=== PATIENT | female | born 1960 | race Caucasian/White ===

== ENCOUNTER 2020-08-14 09:16 | Outpatient (CLI) | payer OTHER, SELFPAY ==
--- NOTE | ~2020-08-14 | MM_ITS ---
EXAMINATION: MM screening marianela BI w brandi HISTORY: Screening mammogram TECHNIQUE: Craniocaudal and mediolateral oblique 3-D tomosynthesis images were obtained and synthetic 2-D images were generated. CAD analysis was submitted and interpreted. COMPARISON: 07/13/2019, 06/07/2018, 04/07/2017 bilateral digital mammogram examinations BREAST PARENCHYMAL COMPOSITION: The breasts are almost entirely fatty. FINDINGS: Subtle grouped microcalcifications in the lower outer right breast; magnification views are recommended. There are scattered bilateral benign calcifications. Otherwise there is no evidence of suspicious mas s, calcification, or architectural distortion to suggest malignancy in either breast. There has been no suspicious interval change. IMPRESSION: 1. Subtle grouped microcalcifications in the lower outer right breast; magnification views are recomm ended 2. Diagnostic right mammogram with magnification views is recommended. BI-RADS Category 0: Incomplete: Needs additional imaging evaluation. Reviewed, dictated and finalized at location A. IMPRESSION: 1. Subtle grouped microcalcifications in the lower outer right breast; magnific ation views are recommended 2. Diagnostic right mammogram with magnification views is recommended. BI-RADS Category 0: Incomplete: Needs additional imaging evaluation.
== END 2020-08-14 09:17 | disposition home or self-care (01) ==
LOC: ANHIMG 09:19
PROVIDERS: PCP Internal Medicine; Visit Provider Internal Medicine
DX: Z12.31 Encounter for screening mammogram for malignant neoplasm of breast (principal); R92.8 Other abnormal and inconclusive findings on diagnostic imaging of breast
CPT/HCPCS: 77063; 77067

== ENCOUNTER → 2020-09-05 08:50 | Outpatient (CLI) | payer OTHER, SELFPAY ==
--- NOTE | ~2020-09-05 | MM_ITS ---
EXAMINATION: MM diagnostic mammo unilat RT HISTORY: Follow-up right breast calcifications TECHNIQUE: Additional 3-D tomosynthesis images of the right breast were performed and synthetic 2-D i mages were generated. CAD analysis was submitted and interpreted. COMPARISON: 08/14/2020 BREAST PARENCHYMAL COMPOSITION: Breast composed of scattered areas of fibroglandular density. FINDINGS: There are linear calcifications clustered in the mid outer aspect of the right breast which are likely benign. These are likely secretory calcifications. There are no suspicious masses or arch itectural distortion. IMPRESSION: 1. Probable benign right breast calcifications. 2. Recommend 6 month follow-up diagnostic right mammogram BI-RADS category 3, probably benign findings. Reviewed, dictated and finalized at location A.
== END ==
PROVIDERS: PCP Internal Medicine; Visit Provider Internal Medicine
DX: R92.8 Other abnormal and inconclusive findings on diagnostic imaging of breast (principal)
CPT/HCPCS: 77065

== ENCOUNTER → 2021-04-21 08:14 | Outpatient (CLI) | payer OTHER, SELFPAY ==
--- NOTE | ~2021-04-21 | MMUS_ITS ---
EXAMINATION: MM diagnostic marianela RT w brandi, US breast RT limited HISTORY: Six-month follow-up examination of probable benign right breast calcifications TECHNIQUE: ML, MLO and craniocaudal 3-D tomosynthesis images and magnification views of the right david ast were performed and synthetic 2-D images were generated. CAD analysis was submitted and interprete d. High resolution lower outer quadrant right breast ultrasound was performed. COMPARISON: 09/05/2020 right diagnostic mammogram BREAST PARENCHYMAL COMPOSITION: The breasts are almost entirely fatty. FINDINGS: MAMMOGRAPHIC FINDINGS: There is a focus of likely benign secretory calcifications in the lower outer quadrant of the right b reast. Lower outer quadrant breast ultrasound examination was performed to exclude any suspicious mas s. Benign secretory calcifications are evident in the lower inner quadrant of the right breast. ULTRASOUND: No suspicious mass or shadowing is detected in the lower outer quadrant of the right breast. IMPRESSION: 1. Benign findings; benign secretory calcifications 2. Annual mammographic screening follow-up is recommended. BI-RADS Category 2: Benign finding(s). Reviewed, dictated and finalized at location A. IMPRESSION: 1. Benign findings; benign secretory calcifications 2. Annual mammographic screening follow-up is recommended. BI-RADS Category 2: Benign finding(s).
== END ==
PROVIDERS: PCP Internal Medicine; Visit Provider Internal Medicine
DX: R92.1 Mammographic calcification found on diagnostic imaging of breast (principal)
CPT/HCPCS: 76642; 77061; 77065; G0279

== ENCOUNTER 2021-06-13 13:28 | Outpatient (CLI) | payer OTHER, SELFPAY ==
--- NOTE | ~2021-06-13 | US_ITS ---
US soft tissue LE LT DATE: 06/13/2021 13:58 INDICATION: Increasing size of a nontender soft tissue mass at base of left buttock TECHNIQUE: Real-time imaging and color flow imaging COMPARISON: None FINDINGS: No soft tissue mass lesion is evident. IMPRESSION: No significant abnormality identified; consider CT pelvis correlation with skin marker ov er the area of interest Reviewed, dictated and finalized at Location A. Reviewed, dictated and finalized at location B. IMPRESSION: No significant abnormality identified; consider CT pelvis correlati on with skin marker over the area of interest
== END 2021-06-13 13:29 | disposition home or self-care (01) ==
LOC: ANHIMG 13:33
PROVIDERS: PCP Internal Medicine; Visit Provider Internal Medicine
DX: M79.89 Other specified soft tissue disorders (principal)
CPT/HCPCS: 76882

== ENCOUNTER 2021-06-20 09:05 | Outpatient (CLI) | payer OTHER, SELFPAY ==
--- NOTE | ~2021-06-20 | CT_ITS ---
EXAMINATION: CT pelvis w con DATE: 06/20/2021 09:59 INDICATION: Left gluteal mass TECHNIQUE: Computed tomography (CT) of the pelvis was performed with 100 cc Omnipaque 350 intravenous contrast. Automated exposure control and iterative reconstruction technique were employed. Exam dose : 1194.34 mGy-cm total exam DLP. COMPARISON: 06/13/2021 soft tissue ultrasound examination FINDINGS: Small fat-containing umbilical hernia. No gluteal mass lesion is identified. The gluteal muscles appear symmetric. Diverticulosis of the sigmoid colon; no CT evidence of diverticulitis. No bowel obstruction or intrap eritoneal free air is evident. The urinary bladder is unremarkable. Status post cholecystectomy. There is atherosclerotic calcification of the abdominal aorta and iliac and femoral arteries but no a neurysm. No lower abdominal or pelvic mass lesion or adenopathy or ascites. No suspicious osteolytic or osteoblastic lesions are noted. IMPRESSION: No significant abnormality Reviewed, dictated and finalized at Location A. Reviewed, dictated and finalized at location A. IMPRESSION: No significant abnormality
[2021-06-20 09:49] LABS: Estimated Glomerular Filt Rate > 60
== END 2021-06-20 09:06 | disposition home or self-care (01) ==
PROVIDERS: PCP Internal Medicine; Visit Provider Internal Medicine
DX: D48.9 Neoplasm of uncertain behavior, unspecified (principal)
CPT/HCPCS: 72193; Q9967

== ENCOUNTER 2022-07-24 14:14 | Outpatient (CLI) | payer OTHER, SELFPAY ==
--- NOTE | ~2022-07-24 | XR_ITS ---
EXAMINATION: XR knee LT min 4V DATE: 07/24/2022 14:40 INDICATION: Left knee pain and swelling. TECHNIQUE: 4 views of left knee including standing views were obtained. COMPARISON: None. FINDINGS: Bone alignment is normal. No fracture. There is moderate osteoarthritis of medial and owens lofemoral compartments and mild osteoarthritis of lateral compartment. There is a small knee joint ef fusion. IMPRESSION: 1. Moderate left knee osteoarthritis. 2. Small left knee joint effusion. Reviewed, dictated and finalized at location A.
== END 2022-07-24 14:15 | disposition home or self-care (01) ==
PROVIDERS: PCP Internal Medicine; Visit Provider Internal Medicine
DX: R01.1 Cardiac murmur, unspecified (principal); M17.12 Unilateral primary osteoarthritis, left knee; M25.462 Effusion, left knee
CPT/HCPCS: 73564

== ENCOUNTER 2022-07-28 12:38 | Outpatient (CLI) | payer OTHER, SELFPAY ==
--- NOTE | 2022-07-28 | ECHO_ITS ---
Patient Info Name: Jasmin Browne Age: 61 years : 1960 Gender: Female Ht: 63 in Wt: 230 lbs BSA: 2.21 m2 HR: 67 bpm BP: 131 / 75 mmHg Heart Rhythm: Sinus Rhythm Exam Date: 07/28/2022 1:12 PM Exam Location: [facility] Patient Status: Outpatient Admit Date: 07/28/2022 Staff Ordering Physician: Estrella Montanez MD Carroting Machine Offbearer: Tyson Brownlee, ALBERTO, RT Attending Provider: Estrella Montanez MD Referring Physician: Tarik ANDRADE; Exam Type: CA echo doppler color flow Study Info Indications R01.1 - Cardiac murmur, unspecified I49.9 - Cardiac arrhythmia, unspecified I10 - Essential (primary) hypertension Complete two-dimensional, color flow and Doppler transthoracic echocardiogram is performed. Strain analysis performed. Summary 1. Complete two-dimensional, color flow and Doppler transthoracic echocardiogram is performed. 2. Normal left ventricular size and thickness with good contractility of all segments. Ejection fraction 63%. Diastolic dysfunction is present. Global longitudinal strain is mildly abnormal,-16%, suggesting early systolic dysfunction. 3. Left atrial chamber dimension is mildly enlarged. 4. No significant valve disease. 5. Pulmonary pressure could not be estimated on this study. 6. Normal sinus rhythm. Left Ventricle Left ventricular chamber dimension is normal. Left ventricular systolic function is normal, estimated at 60-65%. There is no increased left ventricular wall thickness. Left ventricular septal wall motion is normal. The left ventricular diastolic function is abnormal. E/e' 9.8 is abnormal. Global longitudinal strain is mildly elevated at -16 %. Right Ventricle Right ventricular chamber dimension is normal. Right ventricular systolic function is normal. Left Atria Left atrial chamber dimension is mildly enlarged. Right Atria Right atrial chamber dimension is normal. Aortic Valve The aortic valve is trileaflet. There is no aortic valve sclerosis. There is no aortic valve stenosis. There is no aortic valve regurgitation. Pulmonic Valve The pulmonic valve is normal. There is no pulmonic valve stenosis. There is no pulmonic regurgitation. Mitral Valve The mitral valve has normal leaflets. There is no mitral valve stenosis. There is no mitral valve regurgitation. Tricuspid Valve The tricuspid valve leaflets are normal. There is no significant tricuspid valve stenosis. There is trace tricuspid valve regurgitation. No pulmonary hypertension, estimated pulmonary arterial systolic pressure is Empty. Pericardium/Pleural The pericardium appears normal. There is no pericardial effusion. Inferior Vena Cava Normal inferior vena cava with >50% collapse upon inspiration consistent with Empty right atrial pressure, Empty. Aorta The aortic root size at the sinus of Valsalva is normal. The prox ascending aorta size is normal. Left Ventricular Outflow Tract Name Value Normal LVOT 2D LVOT Diameter 2.0 cm LVOT Doppler LVOT Peak Gradient 5 mmHg LVOT Mean Gradient 2 mmHg
== END 2022-07-28 12:39 | disposition home or self-care (01) ==
LOC: ANHCARD 12:39
PROVIDERS: PCP Internal Medicine; Visit Provider Internal Medicine
DX: I10 Essential (primary) hypertension (principal); I49.3 Ventricular premature depolarization
CPT/HCPCS: 93306

== ENCOUNTER 2022-10-28 12:30 | Outpatient (RCR) | payer OTHER, SELFPAY ==
--- NOTE | 2022-09-04 14:56 | PCPTNOTE ---
Addendum entered by Sabino Gan, PT 09/04/22 15:00: Patient did call to say she was sick an hour after scheduled evaluation time. Original Note: Patient did not show up for scheduled appointment this date.
--- NOTE | 2022-09-10 14:49 | PTOPEVAL1 ---
Assessment and note entered by Sabino Gan, PT Evaluation Information Assessment Status Evaluation Reported Pain Level Pain Score 2: Self Report Assessment PT Clinical Summary Waleska is a 61 year old female coming into the clinic with complaints of L knee pain. She shows weakness and decreased range of motion in her L knee to go with DEWAYNE weakness in her hips. In palpation she shows tenderness along the knee joint line and describes some instability in single limb stance and full extension. She has a positive pain with straight leg varus stress test, but not when in 30 degree flexion. Patient could benefit from continued skilled physical therapy to work on lower extremity strengthening and L knee range of motion. Plan of Care Interventions Electrical Stimulation,Gait Training,Manual Therapy,Neuro Re-education,Patient/Caregiver Educati,Therapeutic Activities,Therapeutic Exercise,Ultrasound PT Services Indicated Yes These treatments will address the objective and functional deficits as defined above. The patient will be advanced safely and appropriately in order for the patient to progress towards his/her prior level of function. Additional exercises will be introduced and as well as a comprehensive home exercise program upon discharge, if needed, ?to ensure carryover of functional gains achieved in the clinic. This treatment plan has been reviewed and agreement upon by the patient.
--- NOTE | 2022-10-20 13:36 | PCPTNOTE ---
Patient reports she cannot do two days in a row and therefore canceled.
--- NOTE | 2022-10-28 13:21 | PTOPDC ---
Assessment and note entered by Annette Gomez, PT, DPT Evaluation Information Assessment Status Discharge Diagnosis L knee pain Subjective Information Pt states her knee is improving, but not as quickly as she would have hoped for. She states she feels like she has the tools to continue on her own. Reported Pain Level Pain Score 0: Self Report Assessment PT Clinical Summary Jasmin presents to therapy today for her progress report following 8 visits of skilled therapy to treat her L knee pain. Today she demonstrates decreased pain reports at rest, although her pain does increase with increase work load. She also demonstrates L knee strength that is equal to her R. She continues to demonstrate eddie hip weakness contributing to a Trendelenburg gait pattern during ambulation. She has progressed well towards her therapy goals and demonstrates IND with her HEP. She will be discharged from skilled therapy services at this time. She was instructed to follow up with her referring provider if needed. Plan of Care PT Services Indicated No Treatment Frequency and to be discharged Duration
== END 2022-10-28 16:32 | disposition home or self-care (01) ==
LOC: ANHGOSHPT 12:30
PROVIDERS: PCP Internal Medicine; Visit Provider Orthopaedic Surgery
DX: M25.562 Pain in left knee (principal)
CPT/HCPCS: 97014; 97110; 97112; 97140; 97161; G0283

== ENCOUNTER → 2023-05-11 12:22 | Outpatient (CLI) | payer OTHER, SELFPAY ==
--- NOTE | ~2023-05-11 | MM_ITS ---
EXAMINATION: MM screening marianela BI w brandi HISTORY: Screening mammogram TECHNIQUE: Craniocaudal and mediolateral oblique 3-D tomosynthesis images were obtained and synthetic 2-D images were generated. CAD analysis was submitted and interpreted. COMPARISON: 04/21/2021 diagnostic right mammogram and limited right breast ultrasound examination 09/05/2020 diagnostic right mammogram 08/14/2020 bilateral screening mammogram BREAST PARENCHYMAL COMPOSITION: The breasts are almost entirely fatty. FINDINGS: Scattered benign calcifications are noted bilaterally. There is no evidence of suspicious m ass, calcification, or architectural distortion to suggest malignancy in either breast. There has bee n no suspicious interval change. IMPRESSION: 1. No mammographic evidence of malignancy. 2. Recommend routine screening mammography in one year. BI-RADS Category 2: Benign finding(s). Reviewed, dictated and finalized at location A.
== END ==
PROVIDERS: PCP Internal Medicine; Visit Provider Internal Medicine
DX: Z12.31 Encounter for screening mammogram for malignant neoplasm of breast (principal)
CPT/HCPCS: 77063; 77067

== ENCOUNTER 2024-06-12 10:27 | Outpatient (CLI) | payer MEDICARE, SELFPAY ==
--- NOTE | ~2024-06-12 | MM_ITS ---
EXAMINATION: MM screening marianela BI w brandi HISTORY: Screening TECHNIQUE: Craniocaudal and mediolateral oblique 3-D tomosynthesis images were obtained and synthetic 2-D images were generated. CAD analysis was submitted and interpreted. COMPARISON: Comparison to multiple prior studies sequentially, with oldest reviewed study dated Jama rison to multiple prior studies sequentially, with oldest reviewed study dated 06/07/2018. . BREAST PARENCHYMAL COMPOSITION: Not dense: There are scattered areas of fibroglandular density. FINDINGS: There is no evidence of suspicious mass, calcification, or architectural distortion to sugg est malignancy in either breast. There has been no suspicious interval change. IMPRESSION: 1. No mammographic evidence of malignancy. 2. Recommend routine screening mammography in one year. BI-RADS Category 1: Negative Reviewed, dictated and finalized at location B.
== END 2024-06-12 10:28 ==
LOC: MICIMG 10:30
PROVIDERS: PCP Internal Medicine; Visit Provider Internal Medicine
DX: Z12.31 Encounter for screening mammogram for malignant neoplasm of breast (principal)
CPT/HCPCS: 77063; 77067

== ENCOUNTER 2024-10-24 13:37 | Outpatient (CLI) | payer MEDICARE, SELFPAY ==
--- NOTE | ~2024-10-24 | DEXA_ITS ---
Bone Density Report Name: GALILEO WOODS Age: 64 Sex: Female Ethnicity: White Date of : 1960 Indication: postmenopausal; screening for osteoporosis; height loss; asthma or emphysema; hysterectomy; Referring Provider: UMU KAT Study: Bone densitometry was performed. Exam Date: October 24, 2024 Accession number: [id number] Bone Density: Region BMD T-score Z-score Classification AP Spine(L1-L4) 1.235 1.7 3.5 Normal Femoral Neck (Left) 0.831 -0.2 1.4 Normal Total Hip (Left) 1.082 1.1 2.4 Normal Femoral Neck (Right) 0.910 0.5 2.1 Normal Total Hip (Right) 1.069 1.0 2.3 Normal Total Hip Mean 1.075 1.1 2.4 Normal World Health Organization criteria for BMD impression classify patients as: Normal (T-score at or above -1.0), Osteopenia (T-score between -1.0 and -2.5), or Osteoporosis (T-score at or below -2.5). 10-year Fracture Risk: FRAX not reported because: All T-scores for Spine Total, Hip Total, Femoral Neck at or above -1.0 Clinical Information Provided by Patient: Has the following medical conditions: Asthma or Emphysema, Hysterectomy Patient maximum height was 63 Menopause Age: 42 No regular weight bearing exercise Drinks caffeinated beverages Onset of menses at age 7 Number of children 2 Impression: The patient has normal bone mass. Discussion: BONE DENSITY IS ABOVE THE MINIMUM DESIRABLE LEVEL AT ALL SKELETAL SITES TESTED. This patient?s bone mineral density is above the minimum desirable level (T-score -1.0 or better) at all sites measured. The patient should follow a healthful lifestyle (good nutrition with adequate calcium and vitamin D, and appropriate weight-bearing exercise). Follow-Up: Consider repeating this study in 5 years or sooner if there is some new clinical indication. Reported by: CARLO on 10/24/2024 2:42:00 PM. Reviewed, dictated and finalized at location [facility]
== END 2024-10-24 13:38 | disposition home or self-care (01) ==
PROVIDERS: PCP Internal Medicine; Visit Provider Internal Medicine
DX: M81.0 Age-related osteoporosis without current pathological fracture (principal); Z78.0 Asymptomatic menopausal state
CPT/HCPCS: 77080

== ENCOUNTER 2025-06-12 00:58 | Day surgery (SDC) | payer MEDICARE, SELFPAY ==
[2025-06-11 08:17] VITALS: BMI 38.1
--- OUTSIDE RECORDS SUMMARY | 2025-06-12 01:00 | XMS_ITS | Clinical Summary ---
Author Organization [facility] [address] Address [address] [place] [address] Care Team Providers Care Practice Physician Name Role Phone Estrella Montanez MD Primary Care Provider Allergies No known active allergies Medications metFORMIN (GLUCOPHAGE) 1,000 mg tablet Take 1,000 mg by mouth 2 (two) times a day with meals Active metoprolol XL (TOPROL-XL) 50 mg extended release tablet Take 50 mg by mouth daily Active montelukast (SINGULAIR) 10 mg tablet Take 10 mg by mouth nightly Active rosuvastatin (CRESTOR) 10 mg tablet Take 10 mg by mouth daily Active pioglitazone (ACTOS) 15 mg tabletIndicatio ns:type 2 diabetes mellitus Take 15 mg by mouth daily Active zolpidem (AMBIEN) 10 mg tabletIndicatio ns:Sleep-Onset Insomnia Take 10 mg by mouth nightly as needed for sleep Active fluticasone furoate-vilante roL (BREO ELLIPTA) 100-25 mcg/dose diskus inhaler Inhale 1 puff daily Rinse mouth with water after use. Do not swallow. Active albuterol 1.25 mg/3 mL nebulizer solution Take 1.25 mg by nebulization every 6 (six) hours as needed for wheezing Active coenzyme Q10 200 mg capsule Take 200 mg by mouth daily Active lutein 10 mg tablet Take by mouth Active multivitamin capsule Take 1 capsule by mouth daily Active acidophilus-pec tin, citrus 100 million cell-10 mg capsule Take by mouth Activ e meloxicam (MOBIC) 15 mg tablet meloxicam 15 mg tablet Active losartan-hydroC HLOROthiazide (HYZAAR) 50-12.5 mg per tablet Take 1 tablet by mouth daily 0 Active Active Problems Problem Noted Date Diagnosed Date Cardiomyopathy 08/02/2020 Dyslipidemia associated with type 2 diabetes fidelina litus 05/29/2020 Abnormal echocardiography 04/09/2015 Overview (03/05/2017): Abnormal echocardiogram Asthma 02/13/2015 Overview (03/05/2017): Asthma Dyspnea on exertion 02/13/2015 Overview (03/05/2017): PANDA (dyspnea on exertion) Diabetes mellitus 02/13/2015 Overview (03/05/2017): DM (diabetes mellitus) Palpitations 02/13/2015 Overview (03/05/2017): Palpitations Ventricular premature beats 02/13/2015 Overview (03/05/2017): PVCs (premature ventricular contractions) Hypertension associated with diabetes 02/13/2015 Overview (03/05/2017): HTN (hypertension), benign Surgical History Surgery Date Site/Laterality Comments APPENDECTOMY TUBAL LIGATION HYSTERECTOMY TONSILLECTOMY SHOULDER OPEN ROTATOR CUFF REPAIR Medical History Medical History Date Comments Hypertension Hyperlipidemia Diabetes mellitus (HCC) Asthma Sleep apnea Family History Medical History Relation Name Comments Abdominal Aortic Aneurysm Mother Ab dominal aortic aneurysm; Relation Name Status Comments Father Alive Mother (Age 72) Social History Tobacco Use Types Packs/Day Years Used Date Smoking Tobacco: Former Cigarettes Q uit: 2004 Smokeless Tobacco: Never Alcohol Use Standard Drinks/Week Comments Yes 0 (1 standard drink = 0.6 oz pur e alcohol) Comments Unknown Sex and Gender Information Value Date Recorded Sex Assigned at Not on file Legal Sex 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 Gender Identity Not on file Sexual Orientation Not on file Obstetrics History Last Filed Vital Signs Vital Sign Reading Time Taken Comments Blood Pressure 116/68 10/21/2020 11:30 AM INTEGRITY CONSULTANT Pulse 73 10/21/2020 11:30 AM INTEGRITY CONSULTANT Temperature 36.5 C (97.7 F) 06/27/2020 2:52 PM CDT Respiratory Rate - - Oxygen Saturation 95% 10/21/2020 11:30 AM INTEGRITY CONSULTANT Inhaled Oxygen Concentration - - Weight 107.5 kg (237 lb) 10/21/2020 11:30 AM INTEGRITY CONSULTANT Height 160 cm (5' 3) 10/21/2020 11:30 AM INTEGRITY CONSULTANT Body Mass Index 41.98 10/21/2020 11:30 AM INTEGRITY CONSULTANT Plan of Treatment Not on file Insurance [employer] [facility] [employer] OPEN ACCESS Care Teams Practice Physician Relationship Specialty Start Date End Date Estrella Montanez MD [address] [place] [address] PCP - General 05/21/15
--- OUTSIDE RECORDS SUMMARY | 2025-06-12 01:00 | XMS_ITS | Referral Summary ---
Author Organization [facility] [address] Address [address] [place] [address] Care Team Providers Care Circuits Engineer Name Role Phone Estrella Montanez MD Primary [...] diabetes 02/13/2015 Overview (03/05/2017): HTN (hypertension), benign Social History Tobacco Use Types Packs/Day Years Used Date Smoking Tobacco: Former Cigarettes Q uit: 2004 Smokeless Tobacco: Never Alcohol Use Standard Drinks/Week Comments Yes 0 (1 standard drink = 0.6 oz pur e alcohol) Comments Unknown Sex and Gender Information Value Date Recorded Sex Assigned at Not on file 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 Gender Identity Not on file Sexual Orientation Not on file Last Filed Vital Signs Vital Sign Reading Time Taken Comments Blood Pressure 116/68 10/21/2020 11:30 AM BULL WHEEL WORKER Pulse 73 10/21/2020 11:30 AM BULL WHEEL WORKER Temperature 36.5 C (97.7 F) 06/27/2020 2:52 PM CDT Respiratory Rate - - Oxygen Saturation 95% 10/21/2020 11:30 AM BULL WHEEL WORKER Inhaled Oxygen Concentration - - Weight 107.5 kg (237 lb) 10/21/2020 11:30 AM BULL WHEEL WORKER Height 160 cm (5' 3) 10/21/2020 11:30 AM BULL WHEEL WORKER Body Mass Index 41.98 10/21/2020 11:30 AM BULL WHEEL WORKER Plan of Treatment Not on file Insurance [employer] [facility] [employer] OPEN ACCESS Care Teams Circuits Engineer Relationship Specialty Start Date End Date Estrella Montanez MD [address] [place] [address] PCP - General 05/21/15
[2025-06-12 11:00] VITALS: BP 126/77; PULSE 96; RESP 16; TEMP 35.8; O2SAT 95; BMI 36.3
[2025-06-12] MEDS: LACTATED RINGERS 1,000 ML 150 ML IV CONT (11:18)
--- NOTE | 2025-06-12 11:47 | WPDANESEPPF ---
Anes - Initial Pre Proc Eval Procedure: Operation Date: 06/12/25 12:30 Proposed Procedures p Colonoscopy - Kt Ceja MD Date/Time: 06/12/25 11:47 Surgeon: Kt Ceja MD Pre Op Diagnosis: Diverticulosis of large intestine without perforat Patient Data Age: 64 Gender: F Height: 1.6 m Weight: 93.2 kg Last Vital Signs Temp 96.4 F L 06/12/25 11:00 Pulse 96 06/12/25 11:00 Resp 16 06/12/25 11:00 BP 126/77 06/12/25 11:00 Pulse Ox 95 06/12/25 11:00 O2 Del Method Room Air 06/12/25 11:00 Allergies Allergy/AdvReac Type Severity Reaction Status Date / Time adhesive Allergy Unknown Blister Verified 06/12/25 11:06 REGULAR ADHESIVE AND Allergy Severe RASH, Uncoded 06/12/25 11:06 SURGICAL TAPES BLISTERS. Home Medications ?Medication ?Instructions ?Recorded ?Confirmed ?Type acyclovir 5 % topical ointment 1 applic topical 6XD 07/28/22 06/12/25 History albuterol sulfate 90 mcg/actuation 1 inh inhalation Q4H 07/28/22 06/12/25 History aerosol inhaler (ProAir HFA) blood sugar diagnostic 07/28/22 04/15/23 History losartan 50 mg-hydrochlorothiazide 1 tablet PO DAILY 07/28/22 06/12/25 History 12.5 mg tablet metformin 1,000 mg tablet 1,000 mg PO BID 07/28/22 06/12/25 History metoprolol succinate 50 mg 50 mg PO DAILY 07/28/22 06/12/25 History tablet,extended release 24 hr montelukast 10 mg tablet 10 mg PO DAILY 07/28/22 06/12/25 History (Singulair) multivitamin 1 tablet PO DAILY 07/28/22 06/12/25 History pioglitazone 15 mg tablet 15 mg PO DAILY 07/28/22 06/11/25 History rosuvastatin 10 mg tablet 10 mg PO DAILY 07/28/22 06/12/25 History valacyclovir 1 gram tablet 1,000 mg PO DAILY 07/28/22 06/12/25 History vit C-vit L-ubtpeu-dfdaoqek capsule 1 cap PO DAILY 07/28/22 06/12/25 History zolpidem 10 mg tablet 10 mg PO QHS PRN insomnia 07/28/22 06/11/25 History ibuprofen 200 mg tablet 200 mg PO Q6H PRN pain 06/11/25 06/11/25 History naproxen sodium 220 mg capsule 220 mg PO Q8H PRN pain 06/11/25 06/11/25 History (Aleve) Laboratory Tests 06/12/25 11:17 POC Capillary Glucose 120 H mg/dl (65-105) Patient hx anesthesia problems: none Family hx anesthesia problems: none Results Review: All pre-operative results and documents have been reviewed as part of the pre-operative evaluation. COUNTS INCLUDE 234 BEDS AT THE [facility] Past Medical History Medical History Dehiscence of appendectomy wound Ganglion cyst Tubal Tonsillectomy planned Surgical History Surgical History H/O arthroscopy of left knee History of ankle surgery History of rotator cuff surgery History of bilateral tubal ligation History of tonsillectomy and adenoidectomy History of hysterectomy History of appendectomy Family History Family History Father Hyperlipidemia Depression Mother Hyperlipidemia Acute myocardial infarction Diabetes mellitus Sibling Diabetes mellitus Hypertension Cancer Grandparent Cancer Diabetes mellitus Hypertension Heart disease Grandparent Diabetes mellitus Hypertension Heart disease Social History Social History Smoking status: Former smoker Tobacco type: cigarettes Alcohol intake: current Drinks per week: 7 Alcohol use details: nightly wine or cocktail Substance use: never Substance use type: does not use Lack of Transportation: No Lack of Food: Never True Current Housing: I Have Housing Concerned About Future Housing: No Difficulty Paying Gas/Electric Bills: No Difficulty Paying for Meds: No Currently Unemployed: No Education: High School Diploma/GED Difficulty w/ Childcare or Family Care: No Living arrangements: with family Spiritual care concerns: No Anes - Eval Final PreProcedure Day of Procedure 06/12/25 11:47 Patient weight: obese Lungs: normal air movement Airway: Mallampati scale class III Neurological: alert and oriented Last oral intake: >/= 8 hours ASA classification: III Emergent: no Anesthetic plan: proceed Anesthesia type and monitoring: general GIVS and standard monitoring Results Review: All pre-operative results and documents have been reviewed as part of the pre-operative evaluation. HTN, hyperlipidemia, DM fsbs 120, KELVIN on CPAP, ex smoker quit 2003. Pt can walk 1-2 fos w mild dyspnea, no cp. Informed Consent: The patient's anesthetic plan and its attendant risks and benefits were discussed with the patient/family/POA. Questions were solicited and answers provided to the satisfaction of the patient/family/POA.
--- NOTE | 2025-06-12 12:05 | PM.HPGS ---
History of Present Illness History of Present Illness Consent: Risks, benefits, and alternatives have been discussed and questions answered. Patient agrees to proceed with procedure. Chief complaint: colon screening Narrative: Jasmin Browne is a 64 year old female here for screening colonoscopy, last one 10 years aago Review of Systems Review of Systems: All systems reviewed & are unremarkable except as noted in HPI and below PMFSH Past Medical History Medical History (Updated 06/12/25 @ 12:06 by Kt Ceja MD) Colon cancer screening Dehiscence of appendectomy wound Ganglion cyst Tubal Tonsillectomy planned Surgical History Surgical History H/O arthroscopy of left knee History of ankle surgery History of rotator cuff surgery History of bilateral tubal ligation History of tonsillectomy and adenoidectomy History of hysterectomy History of appendectomy Family History Family History Father Hyperlipidemia Depression Mother Hyperlipidemia Acute myocardial infarction Diabetes mellitus Sibling Diabetes mellitus Hypertension Cancer Grandparent Cancer Diabetes mellitus Hypertension Heart disease Grandparent Diabetes mellitus Hypertension Heart disease Social History Social History Smoking status: Former smoker Tobacco type: cigarettes Alcohol intake: current Drinks per week: 7 Alcohol use details: nightly wine or cocktail Substance use: never Substance use type: does not use Lack of Transportation: No Lack of Food: Never True Current Housing: I Have Housing Concerned About Future Housing: No Difficulty Paying Gas/Electric Bills: No Difficulty Paying for Meds: No Currently Unemployed: No Education: High School Diploma/GED Difficulty w/ Childcare or Family Care: No Living arrangements: with family Spiritual care concerns: No Meds Home Medications and Allergies Home Medications ?Medication ?Instructions ?Recorded ?Confirmed ?Type acyclovir 5 % topical ointment 1 applic topical 6XD 07/28/22 06/12/25 History albuterol sulfate 90 mcg/actuation 1 inh inhalation Q4H 07/28/22 06/12/25 History aerosol inhaler (ProAir HFA) blood sugar diagnostic 07/28/22 04/15/23 History losartan 50 mg-hydrochlorothiazide 1 tablet PO DAILY 07/28/22 06/12/25 History 12.5 mg tablet metformin 1,000 mg tablet 1,000 mg PO BID 07/28/22 06/12/25 History metoprolol succinate 50 mg 50 mg PO DAILY 07/28/22 06/12/25 History tablet,extended release 24 hr montelukast 10 mg tablet 10 mg PO DAILY 07/28/22 06/12/25 History (Singulair) multivitamin 1 tablet PO DAILY 07/28/22 06/12/25 History pioglitazone 15 mg tablet 15 mg PO DAILY 07/28/22 06/11/25 History rosuvastatin 10 mg tablet 10 mg PO DAILY 07/28/22 06/12/25 History valacyclovir 1 gram tablet 1,000 mg PO DAILY 07/28/22 06/12/25 History vit C-vit S-oykfrg-oawwqktu capsule 1 cap PO DAILY 07/28/22 06/12/25 History zolpidem 10 mg tablet 10 mg PO QHS PRN insomnia 07/28/22 06/11/25 History ibuprofen 200 mg tablet 200 mg PO Q6H PRN pain 06/11/25 06/11/25 History naproxen sodium 220 mg capsule 220 mg PO Q8H PRN pain 06/11/25 06/11/25 History (Aleve) Allergies Allergy/AdvReac Type Severity Reaction Status Date / Time adhesive Allergy Unknown Blister Verified 06/12/25 11:06 REGULAR ADHESIVE AND Allergy Severe RASH, Uncoded 06/12/25 11:06 SURGICAL TAPES BLISTERS. Vital Signs Vital Signs - 24 hr 06/12/25 11:00 Temperature 96.4 F L Pulse Rate 96 Respiratory Rate 16 Blood Pressure 126/77 Pulse Oximetry 95 Oxygen Delivery Room Air Exam Const: General: comfortable and no acute distress HENMT: Face/Nose/Sinus: Normal nares present Eyes: General: appearance normal, both eyes and all related structures Neck: Neck: no JVD Resp: Auscultation: clear to auscultation bilaterally Cardio: Rate: regular rate Rhythm: regular rhythm GI: Inspection: non-distended GI Palp: Yes Soft to palpation Skin: General skin exam: normal color Neuro: General: gait normal Speech: normal speech Extrem: General: normal to inspection Psych: Mental Status: mental status grossly normal Assessment and Plan Assessment and plan (1) Colon cancer screening: Code(s): Z12.11 - Encounter for screening for malignant neoplasm of colon Status: Acute Assessment and Plan: colonoscopy
[2025-06-12 12:18] VITALS: BP 110/48; PULSE 70; RESP 20; O2SAT 96
[2025-06-12 12:28] VITALS: BP 131/66; PULSE 62; RESP 19; O2SAT 100
[2025-06-12 12:38] VITALS: BP 128/56; PULSE 72; RESP 23; O2SAT 100
== END 2025-06-12 12:49 | disposition home or self-care (01) ==
PROVIDERS: PCP Internal Medicine; Referring Provider Internal Medicine; Visit Provider Internal Medicine Gastroenterology
PROC: 0DJD8ZZ Inspection of Lower Intestinal Tract, Via Natural or Artificial Opening Endoscopic (ICD-10-PCS; CPT 45378; principal; 2025-06-12 12:30)
DX: Z12.11 Encounter for screening for malignant neoplasm of colon (principal); K57.30 Diverticulosis of large intestine without perforation or abscess without bleeding; K64.8 Other hemorrhoids; Z87.891 Personal history of nicotine dependence; Z79.84 Long term (current) use of oral hypoglycemic drugs
CPT/HCPCS: G0121; 82948; J2003; J2704; J7120

== ENCOUNTER 2025-07-02 10:08 | Outpatient (CLI) | payer MEDICARE, SELFPAY ==
--- NOTE | ~2025-07-02 | MM_ITS ---
EXAMINATION: MM screening marianela BI w brandi HISTORY: Screening TECHNIQUE: Craniocaudal and mediolateral oblique 3-D tomosynthesis images were obtained and synthetic 2-D images were generated. CAD analysis was submitted and interpreted. COMPARISON: Comparison to multiple prior studies sequentially, with oldest reviewed study dated 04/07. BREAST PARENCHYMAL COMPOSITION: The breasts are almost entirely fatty. FINDINGS: There is no evidence of suspicious mass, calcification, or architectural distortion to sug gest malignancy in either breast. Scattered benign-appearing calcifications are present. IMPRESSION: 1. No mammographic evidence of malignancy. 2. Recommend routine screening mammography in one year. BI-RADS Category 2: Benign finding(s). Reviewed, dictated and finalized at location B.
== END 2025-07-02 10:09 | disposition home or self-care (01) ==
LOC: MICIMG 10:09
PROVIDERS: PCP Internal Medicine; Visit Provider Internal Medicine
DX: Z12.31 Encounter for screening mammogram for malignant neoplasm of breast (principal)
CPT/HCPCS: 77063; 77067

== ENCOUNTER 2025-08-01 14:51 | Outpatient (CLI) | payer MEDICARE, SELFPAY ==
--- NOTE | ~2025-08-01 | XR_ITS ---
EXAMINATION: XR chest 2V 08/01/2025 15:23 INDICATION: Fever and chills PROCEDURE: 2 view chest COMPARISON: 03/06/2014 FINDINGS: The lungs are clear. The cardiomediastinal silhouette is within normal limits. There are no pleural effusions. There is no pneumothorax suspected. IMPRESSION: 1: NO ACUTE CARDIOPULMONARY DISEASE. Reviewed, dictated and finalized at location O.
[2025-08-01 15:16] LABS: Hematocrit 39.1 % (35.0-42.0); Hemoglobin 13.0 g/dL (11.7-13.8); Mean Corpuscular HGB Conc 33.2 g/dL (32-36); Mean Corpuscular Hemoglobin 31.5 pg (27.0-31.0); Mean Corpuscular Volume 94.7 fL (78.0-102.0); Platelet Count Result 181 K/mm3 (150-420); Red Blood Count 4.13 M/mm3 (4.20-5.40); White Blood Count 4.8 K/mm3 (4.8-10.8)
[2025-08-01 15:21] LABS: Alanine Aminotransferase 20 U/L (6-35); Albumin Level 4.7 g/dL (3.5-5.1); Alkaline Phosphatase 80 U/L (38-126); Amylase 106 U/L (30-110); Anion Gap 11 mmol/L (4-12); Aspartate Amino Transferase 43 U/L (14-36); Bilirubin,Total 0.9 mg/dL (0.2-1.3); Blood Urea Nitrogen 31 mg/dL (7-17); Calcium 10.0 mg/dL (8.4-10.2); Carbon Dioxide 25 mmol/L (22-30); Chloride 103 mmol/L (98-107); Estimated Glomerular Filt Rate 46; Glucose 126 mg/dL (65-110); Lipase 175 U/L (23-300); Osmolality Calculated 296 mOsm/kg (285-295); Potassium 4.4 mmol/L (3.4-5.0); Sodium 139 mmol/L (137-145); Total Protein 7.3 g/dL (6.3-8.2)
[2025-08-01 15:27] LABS: Add Urine Microscopic? NO; Appearance Urine Clear (Clear); Glucose Urine UA Negative (Negative); Leukocyte Esterase Ur Negative (Negative); Nitrate Urine Negative (Negative); Specific Grav Ur 1.020 (1.010-1.020)
--- OUTSIDE RECORDS SUMMARY | 2025-08-01 16:20 | XMS_ITS | Clinical Summary ---
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 Gender Identity Not on file Sexual Orientation Not on file Obstetrics History Last Filed Vital Signs Vital Sign Reading Time Taken Comments Blood Pressure 116/68 10/21/2020 11:30 AM SOCIAL SERVICES TECHNICIAN Pulse 73 10/21/2020 11:30 AM SOCIAL SERVICES TECHNICIAN Temperature 36.5 C (97.7 F) 06/27/2020 2:52 PM CDT Respiratory Rate - - Oxygen Saturation 95% 10/21/2020 11:30 AM SOCIAL SERVICES TECHNICIAN Inhaled Oxygen Concentration - - Weight 107.5 kg (237 lb) 10/21/2020 11:30 AM SOCIAL SERVICES TECHNICIAN Height 160 cm (5' 3) 10/21/2020 11:30 AM SOCIAL SERVICES TECHNICIAN Body Mass Index 41.98 10/21/2020 11:30 AM SOCIAL SERVICES TECHNICIAN Plan of Treatment Not on file Insurance [employer] [facility] [employer] Care Teams Sample Mounter Relationship Specialty Start Date End Date Estrella Montanez MD [address] [place] [address] PCP - General 05/21/15
== END 2025-08-01 14:52 | disposition home or self-care (01) ==
PROVIDERS: PCP Internal Medicine; Visit Provider Internal Medicine
DX: R50.9 Fever, unspecified (principal); J06.9 Acute upper respiratory infection, unspecified; R11.0 Nausea
CPT/HCPCS: 36415; 71046; 80053; 81003; 82150; 83690; 85027; 87086